=== PATIENT | female | born 1990 | race Caucasian/White ===

== ENCOUNTER 2020-11-13 09:29 | Outpatient (REF) | payer MEDICAID, SELFPAY | END 2020-11-13 09:30 | disposition home or self-care (01) | LOC: HO.LAB 09:29 | PROVIDERS: Visit Provider Internal Medicine | DX: Z20.822 Contact with and (suspected) exposure to COVID-19 (principal) | CPT/HCPCS: C9803; U0003; U0005 ==

== ENCOUNTER 2022-04-19 22:29 | Emergency (ER) | payer MEDICAID, SELFPAY ==
[2022-04-19 22:52] VITALS: BP 159/108; PULSE 71; RESP 20; TEMP 36.6; O2SAT 100; BMI 31.8
--- NOTE | 2022-04-19 23:01 | PC.NURSE ---
patient had conversation with this RN about how she actually does not want to wait to be seen since the waiting room is full and she knows it will be a long wait. patient tells this RN she has a prescription for blood pressure medications waiting for her at her pharmacy however she has not had any time to pick them up since 04/08. 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 leaving without treatment @2300, staff research associate used.
--- OUTSIDE RECORDS SUMMARY | 2022-04-19 23:37 | XMS_ITS | Continuity of Care Document ---
:1990 Author Organization [facility] Address [address] [place] [id number]- Care Team Providers Name Role Phone Deborah Davis MD Primary Care Physician [phone] Encounter [facility] Date(s): 02/24/20 - 03/25/20 [facility] [address] [place] [id number] Attending Physician: Kimber Hirsch Admitting Physician: Kimber Hirsch Referring Physician: Kimber Hirsch Referring Physician: Khanh Hannah Allergies, Adverse Reactions, Alerts Substance Reaction Severity Status Advil throat closing Active Immunizations Given and Recorded Vaccine Date Status Refusal Reason influenza virus vaccine, inactivated1 05/21/14 Given 1Early/Late Reason: Other : Vaccine information fact sheet given, time to read about the Vaccine Medications Liletta 52 mg intrauteral device 1 each = 52 mg, Once, 0 Refills, Maintenance, 12/05/17 12:06:46 EDT Start Date: 12/05/17 Status: Orderedpropranolol 20 mg oral tablet 20 mg, 1, tablet, By Mouth, 2 times a day, PRN, for palpitations, Solo cuando necessitas, # 60 tablet, Refills 3, Tot. Refills 3, Maintenance, Chest Pain, 02/13/18 11:30:40 EST, Route to Pharmacy Electronically, [id number] CE[facility].. Start Date: 02/13/18 Status: OrderedTylenol 325 mg oral tablet 325 mg, 1, tablet, By Mouth, Every 4 hours, PRN, # 60 tablet, Refills 0, Tot. Refills 0, Maintenance, for pain, 05/20/16 11:01:07, Route to Pharmacy Electronically, [id number], [facility]/pharmacy #[id number] Start Date: 05/20/16 Status: Ordered Problem List Condition Effective Dates Status Health Status Informant Anxiety(Confirmed) Active Depression(Confirmed) Active Palpitations(Confirmed) Active Social History Social History Type Response Smoking Status Never smoker entered on: 05/20/14 Sex
--- OUTSIDE RECORDS SUMMARY | 2022-04-19 23:37 | XMS_ITS | Continuity of Care Document ---
:1990 Author Organization [facility] Address [address] [place] [id number]- Care Team Providers Name Role Phone Deborah Davis MD Primary Care Physician [phone] Encounter [facility] [place] Date(s): 12/09/19 - 03/25/20 [facility] [address] [place] [id number]- Attending Physician: Dale Amanda MD Admitting Physician: Dale Amanda MD Referring Physician: Deborah Davis MD Allergies, Adverse Reactions, Alerts Substance Reaction Severity [...] 02/13/18 11:30:40 EST, Route to Pharmacy Electronically, [id number], C... Start Date: 02/13/18 Status: OrderedTylenol 325 mg oral tablet 325 mg, 1, tablet, By Mouth, Every 4 hours, PRN, # 60 tablet, Refills 0, Tot. Refills 0, Maintenance, for pain, 05/20/16 11:01:07, Route to Pharmacy Electronically, [id number], [facility]/pharmacy #[id number] Start Date: 05/20/16 Status: Ordered Problem List Condition Effective Dates Status Health Status Informant Anxiety(Confirmed) Active Depression(Confirmed) Active Palpitations(Confirmed) Active Social History Social History Type Response Smoking Status Never smoker entered on: 05/20/14 Sex
--- OUTSIDE RECORDS SUMMARY | 2022-04-19 23:37 | XMS_ITS | Continuity of Care Document ---
:1990 Author Organization [facility] Address [address] [place] [id number]- Care Team Providers Name Role Phone Deborah Davis MD Primary Care Physician Encounter [facility] Date(s): 12/09/19 - 01/08/20 [facility] [address] [place] [id number]- [facility] Allergies, Adverse Reactions, Alerts Substance Reaction Severity [...] 02/13/18 11:30:40 EST, Route to Pharmacy Electronically, [id number], C... Start Date: 02/13/18 Status: OrderedTylenol 325 mg oral tablet 325 mg, 1, tablet, By Mouth, Every 4 hours, PRN, # 60 tablet, Refills 0, Tot. Refills 0, Maintenance, for pain, 05/20/16 11:01:07, Route to Pharmacy Electronically, [id number], [facility]/pharmacy #[id number] Start Date: 05/20/16 Status: Ordered Problem List Condition Effective Dates Status Health Status Informant Anxiety(Confirmed) Active Depression(Confirmed) Active Palpitations(Confirmed) Active Social History Social History Type Response Smoking Status Never smoker entered on: 05/20/14 Sex
--- OUTSIDE RECORDS SUMMARY | 2022-04-19 23:37 | XMS_ITS | Continuity of Care Document ---
:1990 Author Organization [facility] Address [address] [place] [id number]- Care Team Providers Name Role Phone Deborah Daivs MD Primary Care Physician En[place] [facility] [id number] Date(s): 12/28/19 - 03/25/20 [facility] [address] [place] [id number] Attending Physician: Dale Amanda MD Admitting Physician: [...] 02/13/18 11:30:40 EST, Route to Pharmacy Electronically, [id number], C... Start Date: 02/13/18 Status: OrderedTylenol 325 mg oral tablet 325 mg, 1, tablet, By Mouth, Every 4 hours, PRN, # 60 tablet, Refills 0, Tot. Refills 0, Maintenance, for pain, 05/20/16 11:01:07, Route to Pharmacy Electronically, [id number], [facility]/pharmacy #[id number] Start Date: 05/20/16 Status: Ordered Problem List Condition Effective Dates Status Health Status Informant Anxiety(Confirmed) Active Depression(Confirmed) Active Palpitations(Confirmed) Active Social History Social History Type Response Smoking Status Never smoker entered on: 05/20/14 Sex
== END 2022-04-19 23:43 | disposition left against medical advice (07) ==
LOC: HO.ED 23:36
PROVIDERS: Emergency Provider Emergency Medicine
DX: I10 Essential (primary) hypertension (principal)
CPT/HCPCS: 99281

== ENCOUNTER 2022-04-20 11:48 | Emergency (ER) | payer MEDICAID, SELFPAY ==
--- NOTE | ~2022-04-20 | XR_ITS ---
EXAMINATION: XR CHEST CLINICAL INFORMATION: Chest pain and shortness of breath COMPARISON: None TECHNIQUE: 2 views of the chest were obtained. FINDINGS: No significant abnormality is noted involving the heart, lungs, mediastinum, bony thorax or soft tissues. XR/XR chest 2V IMPRESSION: Unremarkable examination.
--- NOTE | 2022-04-20 11:52 | ECG_ITS ---
Test Reason : chest pain Blood Pressure : / mmHG Vent. Rate : 067 BPM Atrial Rate : 067 BPM P-R Int : 136 ms QRS Dur : 136 ms QT Int : 392 ms P-R-T Axes : 019 011 -17 degrees QTc Int : 414 ms Normal sinus rhythm Right bundle branch block T wave abnormality, consider inferior ischemia Abnormal ECG When compared with ECG of 06-FEB-2010 02:30, [place] interval has increased Questionable change in QRS axis T wave inversion more evident in Inferior leads Nonspecific T wave abnormality now evident in Lateral leads Referred By: Generic ED Physician Electronically Signed By:Jaxon Coello
--- NOTE | 2022-04-20 12:00 | ED_ITS ---
HPI - Arrhythmia/Palpitations General Chief Complaint: General Medical <Jazzy Sabillon CNP - Last Filed: 04/20/22 12:19> Stated Complaint: rapid heart beat <Jazzy Sabillon CNP - Last Filed: 04/20/22 12:19> Time Seen by Provider: 04/20/22 16:22 <Jazzy Sabillon CNP - Last Filed: 04/20/22 12:19> Source: patient and court interpreter <Reilly Cruz MD - Last Filed: 04/20/22 17:34> Mode of arrival: ambulatory <Reilly Cruz MD - Last Filed: 04/20/22 17:34> Limitations: no limitations <Reilly Cruz MD - Last Filed: 04/20/22 17:34> History of Present Illness HPI narrative: 31-year-old female came in for evaluation of palpitation. Patient was sent from PCP office for evaluation of palpitation and abnormal EKG, patient been having intermittent feeling of palpitation on and off last time she felt palpitation was 3 days ago, nothing triggered her symptoms, patient declined CP or SOB, no recent travel, no lower extremity swelling, no history of DVT or PE. <Reilly Cruz MD - Last Filed: 04/20/22 17:34> Related Data Home Medications: Previous Rx's Medication Instructions Recorded nitrofurantoin 100 mg PO BID #14 caps 04/20/22 monohydrate/macrocrystals 100 mg capsule (Macrobid) <Jazzy Sabillon CNP - Last Filed: 04/20/22 12:19> Allergies/Adverse Reactions: Allergies Allergy/AdvReac Type Severity Reaction Status Date / Time ibuprofen [Advil] Allergy Unknown Unknown Verified 04/20/22 12:02 <Jazzy Sabillon CNP - Last Filed: 04/20/22 12:19> Review of Systems Review of Systems: All other systems are reviewed and are negative Constitutional: Reports as per HPI and Reports no additional constitutional complaints Eyes: Reports as per HPI and Reports no additional eye complaints Reports system reviewed and no additional complaints, except as documented Cardiovascular: Reports as per HPI and Reports no additional cardiovascular complaints Respiratory: Reports as per HPI and Reports no additional respiratory complaints Gastrointestinal: Reports as per HPI and Reports no additional gastrointestinal complaints Genitourinary: Reports no additional female genitourinary complaints Musculoskeletal: Reports no additional musculoskeletal complaints Skin/Breast: Reports system reviewed and no additional complaints, except as docu Psychiatric: Reports no additional psychiatric complaints Endocrine: Reports no additional endocrine complaints Hematologic/Lymphatic: Reports no additional hematologic/lymphatic complaints Allergic/Immunologic: Reports no additional allergic/immunologic complaints Reports system reviewed and no additional complaints, except as documented and Reports Abnormal speech present <Reilly Cruz MD - Last Filed: 04/20/22 17:34> [facility] Social History Social History: Social History Advance Directives: No Advance Directives Information Provided: No <Jazzy Sabillon CNP - Last Filed: 04/20/22 12:19> Physical Exam Vital Signs: Vital Signs: Last Vital Signs Temp 97.9 F 04/20/22 16:40 Pulse 64 04/20/22 16:40 Resp 20 04/20/22 16:40 BP 140/91 H 04/20/22 16:40 Pulse Ox 99 04/20/22 16:40 O2 Del Method 04/20/22 16:40 BMI result Body Mass Index 32.9 <Jazzy Sabillon CNP - Last Filed: 04/20/22 12:19> Vital Signs: Last Vital Signs Temp 97.9 F 04/20/22 16:40 Pulse 64 04/20/22 16:40 Resp 20 04/20/22 16:40 BP 140/91 H 04/20/22 16:40 Pulse Ox 99 04/20/22 16:40 O2 Del Method 04/20/22 16:40 BMI result Body Mass Index 32.9 Vital signs have been reviewed as appeared to be correct. Blood pressure normal. Heart rate normal. Respiration rate normal. Temperature normal. Oxygen saturation normal. <Reilly Cruz MD - Last Filed: 04/20/22 17:34> Appearance: Alert. Oriented X3. No acute distress. Head: Normal external exam. Normocephalic. Atraumatic. No Alex signs noted. No raccoon eyes noted Eyes: PERRLA. EOMI. Conjunctiva and sclera normal. Eyelids normal. ENT: TM's Normal. Pharynx normal. Uvula midline. Moist mucous membranes. No trismus noted. No drooling noted. No muffled voice noted. Neck: Normal inspection. Neck supple. FROM. No adenopathy. Thyroid Normal. No meningeal signs. No neck mass noted. CVS: Normal heart rate and rhythm. Heart sound normal. No murmurs noted. Pulses normal throughout. Respiratory: No respiratory distress. Painless inspiration. Breath sounds normal. No wheezes/rales/rhonchi noted. Chest nontender. No accessory muscle usage noted or decreased air movement noted. Abdomen: Soft and nontender. Bowel sounds normal in all 4 quadrants. No distention noted. No organomegaly noted. No visible injury noted. Back: No CVA tenderness. Full range of motion noted. Skin: Skin warm and dry. Normal skin color. Normal skin turgor. No rashes/lesions/lacerations noted. Extremities: No lower extremity edema. Extremities exhibit normal range of motion. Extremities nontender. Neuro: Oriented X 3. Cranial nerve exam: II-XII are grossly intact No motor deficit. No sensory deficit. Reflexes normal. <Reilly Cruz MD - Last Filed: 04/20/22 17:34> Course Course Course Narrative: This is an RME: Additional HPI, ROS, PE not included below will be deferred to primary provider. 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 Patient presents emergency depa rtment. States that she was seen here yesterday for chest pain, palpitations, shortness of breath intermittently over the past 2 weeks, constant over the last 3 days. Additionally, she states ?my blood pressure is always high?. The been on medication in the possible hypertension, but no longer taking over the past year, because she did not have a follow-up appointment with Cardiology. She states that she does have a PCP, saw her on 04/08/22, they were supposed to prescribe her medication, but when she went to the pharmacy there were no medications for her. She states that she again saw her PCP today, and was advised to come to emergency department because of concern for her blood pressure and heart rate. Plan: EKG, CXR, labs, U/A, hCG <Jazzy Sabillon CNP - Last Filed: 04/20/22 12:19> Reevaluation(s) Reevaluation #1: 31-year-old female came in for evaluation of palpitation, PCP sent the patient for further evaluation and concern of abnormal EKG. Patient found to be a young healthy female slightly anxious interview was conducted using diplomatic interpreter/translator, patient has unremarkable labs, EKG was compared with old EKG was unremarkable ED changed. Patient currently has no symptoms, patient was instructed to follow-up with vmware engineer as an outpatient for possible Holter monitoring if symptoms persist. Urine is showing a UTI patient was complaining of frequency urination and dysuria will start the patient on Macrobid. <Reilly Cruz MD - Last Filed: 04/20/22 17:34> Time: 16:43 <Reilly Cruz MD - Last Filed: 04/20/22 17:34> Medical Decision Making Differential Diagnosis Differential Diagnoses: The differential diagnosis associated with the presentation includes <Reilly Cruz MD - Last Filed: 04/20/22 17:34> Dysrhythmia, atrial fibrillation, PVCs, electrolyte disturbance, hyperthyroidism, ACS. <Reilly Cruz MD - Last Filed: 04/20/22 17:34> Lab Data MDM Lab Attestation statement: I reviewed the patient's lab results. <Reilly Cruz MD - Last Filed: 04/20/22 17:34> Result Diagrams: 04/20/22 12:26 04/20/22 12:26 <Jazzy Sabillon CNP - Last Filed: 04/20/22 12:19> Labs: Lab Results 04/20/22 04/20/22 04/20/22 Range/Units 12:26 12:26 12:26 WBC 9.8 (4.8-10.8) X10*3/uL RBC 5.35 (4.20-5.50) X10*6/uL Hgb 14.1 (12.0-16.0) g/dl Hct 44.2 (37.0-47.0) % MCV 82.6 (80.0-98.0) fL MCH 26.4 L (27.0-33.0) pg MCHC 31.9 (31.0-35.0) g/dl RDW 12.9 (11.0-16.0) % Plt Count 427 H (160-400) X10*3/uL MPV 9.4 (9.4-12.3) fL Immature Gran % (Auto) 0.3 (0.0-0.4) % Neut % (Auto) 55.2 (45-73) % Lymph % (Auto) 34.0 (20-40) % [place] % (Auto) 8.2 (2-11) % Eos % (Auto) 1.7 (0-4) % Baso % (Auto) 0.6 (0-2) % Lymph # (Auto) 3.4 (1.2-4.9) X10*3/uL [place] # (Auto) 0.8 (0.1-1.2) X10*3/uL Eos # (Auto) 0.2 (0.0-0.4) X10*3/uL Baso # (Auto) 0.1 (0.0-0.2) X10*3/uL Abs Immat Gran (auto) 0.03 (0.00-0.03) X10*3/uL Absolute Neuts (auto) 5.4 (2.0-8.3) x10*3/uL Absolute Nucleated RBC 0.000 (0.0-0.012) X10*3/uL Nucleated RBC % (auto) 0.0 (0.0-0.2) /100WBC Sodium 142 (135-145) mmol/L Potassium 4.6 (3.3-5.1) mmol/L Chloride 107 (96-108) mmol/L Carbon Dioxide 27 (22-29) mmol/L Anion Gap 13 (12-20) BUN 9 (9-16) mg/dL Creatinine 0.67 (0.5-1.4) mg/dL Estim Creat Clear Calc 121.6 Estimated GFR > 60 Random Glucose 98 (60-115) mg/dL Calcium 9.6 (8.4-10.2) mg/dL Total Bilirubin 0.3 (0.0-1.0) mg/dL AST 15 (5-31) U/L ALT 27 (0-31) U/L Alkaline Phosphatase 71 (39-117) U/L Troponin I High Sens 7.1 (<3.5-17.0) ng/L Total Protein 7.3 (6.5-8.0) g/dL Albumin 4.2 (3.5-5.0) g/dL TSH 0.98 (0.32-4.0) uIU/mL Urine Color Urine Appearance Urine pH (5.0-9.0) Ur Specific [place] (1.005-1.025) Urine Protein (Neg-Trace) mg/dL Urine Glucose (UA) (Negative) mg/dL Urine Ketones (Negative) mg/dL Urine Blood (Negative) Urine Nitrite (Negative) Ur Leukocyte Esterase (Negative) Urine RBC (0-2) /HPF Urine WBC (0-5) /HPF Ur Squamous Epith Cells (0-2) /HPF Urine Bacteria (None Seen) Hyaline Casts (0-2) /LPF Urine Test (NEGATIVE) COVID-19 (SHASHI) (Negative) COVID-19 Clin Com Influenza Type A (BARBARA) (Negative) Influenza Type B (BARBARA) (Negative) Influenza A & B Note 04/20/22 04/20/22 04/20/22 Range/Units 12:26 12:26 17:00 WBC (4.8-10.8) X10*3/uL RBC (4.20-5.50) X10*6/uL Hgb (12.0-16.0) g/dl Hct (37.0-47.0) % MCV (80.0-98.0) fL MCH (27.0-33.0) pg MCHC (31.0-35.0) g/dl RDW (11.0-16.0) % Plt Count (160-400) X10*3/uL MPV (9.4-12.3) fL Immature Gran % (Auto) (0.0-0.4) % Neut % (Auto) (45-73) % Lymph % (Auto) (20-40) % [place] % (Auto) (2-11) % Eos % (Auto) (0-4) % Baso % (Auto) (0-2) % Lymph # (Auto) (1.2-4.9) X10*3/uL [place] # (Auto) (0.1-1.2) X10*3/uL Eos # (Auto) (0.0-0.4) X10*3/uL Baso # (Auto) (0.0-0.2) X10*3/uL Abs Immat Gran (auto) (0.00-0.03) X10*3/uL Absolute Neuts (auto) (2.0-8.3) x10*3/uL Absolute Nucleated RBC (0.0-0.012) X10*3/uL Nucleated RBC % (auto) (0.0-0.2) /100WBC Sodium (135-145) mmol/L Potassium (3.3-5.1) mmol/L Chloride (96-108) mmol/L Carbon Dioxide (22-29) mmol/L Anion Gap (12-20) BUN (9-16) mg/dL Creatinine (0.5-1.4) mg/dL Estim Creat Clear Calc Estimated GFR Random Glucose (60-115) mg/dL Calcium (8.4-10.2) mg/dL Total Bilirubin (0.0-1.0) mg/dL AST (5-31) U/L ALT (0-31) U/L Alkaline Phosphatase (39-117) U/L Troponin I High Sens (<3.5-17.0) ng/L Total Protein (6.5-8.0) g/dL Albumin (3.5-5.0) g/dL TSH (0.32-4.0) uIU/mL Urine Color Yellow Urine Appearance Cloudy Urine pH 6.5 (5.0-9.0) Ur Specific [place] 1.025 (1.005-1.025) Urine Protein Trace (Neg-Trace) mg/dL Urine Glucose (UA) Negative (Negative) mg/dL Urine Ketones Negative (Negative) mg/dL Urine Blood Trace H (Negative) Urine Nitrite Negative (Negative) Ur Leukocyte Esterase Moderate (2+) H (Negative) Urine RBC 6-10 H (0-2) /HPF Urine WBC 21-50 H (0-5) /HPF Ur Squamous Epith Cells 11-20 (0-2) /HPF Urine Bacteria 2+ (None Seen) Hyaline Casts 0-2 (0-2) /LPF Urine Test (NEGATIVE) COVID-19 (SHASHI) Negative (Negative) COVID-19 Clin Com See Note Influenza Type A (BARBARA) Negative (Negative) Influenza Type B (BARBARA) Negative (Negative) Influenza A & B Note See Note 02/15/23 Range/Units 17:00 WBC (4.8-10.8) X10*3/uL RBC (4.20-5.50) X10*6/uL Hgb (12.0-16.0) g/dl Hct (37.0-47.0) % MCV (80.0-98.0) fL MCH (27.0-33.0) pg MCHC (31.0-35.0) g/dl RDW (11.0-16.0) % Plt Count (160-400) X10*3/uL MPV (9.4-12.3) fL Immature Gran % (Auto) (0.0-0.4) % Neut % (Auto) (45-73) % Lymph % (Auto) (20-40) % [place] % (Auto) (2-11) % Eos % (Auto) (0-4) % Baso % (Auto) (0-2) % Lymph # (Auto) (1.2-4.9) X10*3/uL [place] # (Auto) (0.1-1.2) X10*3/uL Eos # (Auto) (0.0-0.4) X10*3/uL Baso # (Auto) (0.0-0.2) X10*3/uL Abs Immat Gran (auto) (0.00-0.03) X10*3/uL Absolute Neuts (auto) (2.0-8.3) x10*3/uL Absolute Nucleated RBC (0.0-0.012) X10*3/uL Nucleated RBC % (auto) (0.0-0.2) /100WBC Sodium (135-145) mmol/L Potassium (3.3-5.1) mmol/L Chloride (96-108) mmol/L Carbon Dioxide (22-29) mmol/L Anion Gap (12-20) BUN (9-16) mg/dL Creatinine (0.5-1.4) mg/dL Estim Creat Clear Calc Estimated GFR Random Glucose (60-115) mg/dL Calcium (8.4-10.2) mg/dL Total Bilirubin (0.0-1.0) mg/dL AST (5-31) U/L ALT (0-31) U/L Alkaline Phosphatase (39-117) U/L Troponin I High Sens (<3.5-17.0) ng/L Total Protein (6.5-8.0) g/dL Albumin (3.5-5.0) g/dL TSH (0.32-4.0) uIU/mL Urine Color Urine Appearance Urine pH (5.0-9.0) Ur Specific [place] (1.005-1.025) Urine Protein (Neg-Trace) mg/dL Urine Glucose (UA) (Negative) mg/dL Urine Ketones (Negative) mg/dL Urine Blood (Negative) Urine Nitrite (Negative) Ur Leukocyte Esterase (Negative) Urine RBC (0-2) /HPF Urine WBC (0-5) /HPF Ur Squamous Epith Cells (0-2) /HPF Urine Bacteria (None Seen) Hyaline Casts (0-2) /LPF Urine Test NEGATIVE (NEGATIVE) COVID-19 (SHASHI) (Negative) COVID-19 Clin Com Influenza Type A (BARBARA) (Negative) Influenza Type B (BARBARA) (Negative) Influenza A & B Note <Jazzy Sabillon, AUDREY - Last Filed: 04/20/22 12:19> Lab Results 04/20/22 04/20/22 04/20/22 Range/Units 12:26 12:26 12:26 WBC 9.8 (4.8-10.8) X10*3/uL RBC 5.35 (4.20-5.50) X10*6/uL Hgb 14.1 (12.0-16.0) g/dl Hct 44.2 (37.0-47.0) % MCV 82.6 (80.0-98.0) fL MCH 26.4 L (27.0-33.0) pg MCHC 31.9 (31.0-35.0) g/dl RDW 12.9 (11.0-16.0) % Plt Count 427 H (160-400) X10*3/uL MPV 9.4 (9.4-12.3) fL Immature Gran % (Auto) 0.3 (0.0-0.4) % Neut % (Auto) 55.2 (45-73) % Lymph % (Auto) 34.0 (20-40) % [place] % (Auto) 8.2 (2-11) % Eos % (Auto) 1.7 (0-4) % Baso % (Auto) 0.6 (0-2) % Lymph # (Auto) 3.4 (1.2-4.9) X10*3/uL [place] # (Auto) 0.8 (0.1-1.2) X10*3/uL Eos # (Auto) 0.2 (0.0-0.4) X10*3/uL Baso # (Auto) 0.1 (0.0-0.2) X10*3/uL Abs Immat Gran (auto) 0.03 (0.00-0.03) X10*3/uL Absolute Neuts (auto) 5.4 (2.0-8.3) x10*3/uL Absolute Nucleated RBC 0.000 (0.0-0.012) X10*3/uL Nucleated RBC % (auto) 0.0 (0.0-0.2) /100WBC Sodium 142 (135-145) mmol/L Potassium 4.6 (3.3-5.1) mmol/L Chloride 107 (96-108) mmol/L Carbon Dioxide 27 (22-29) mmol/L Anion Gap 13 (12-20) BUN 9 (9-16) mg/dL Creatinine 0.67 (0.5-1.4) mg/dL Estim Creat Clear Calc 121.6 Estimated GFR > 60 Random Glucose 98 (60-115) mg/dL Calcium 9.6 (8.4-10.2) mg/dL Total Bilirubin 0.3 (0.0-1.0) mg/dL AST 15 (5-31) U/L ALT 27 (0-31) U/L Alkaline Phosphatase 71 (39-117) U/L Troponin I High Sens 7.1 (<3.5-17.0) ng/L Total Protein 7.3 (6.5-8.0) g/dL Albumin 4.2 (3.5-5.0) g/dL TSH 0.98 (0.32-4.0) uIU/mL Urine Color Urine Appearance Urine pH (5.0-9.0) Ur Specific [place] (1.005-1.025) Urine Protein (Neg-Trace) mg/dL Urine Glucose (UA) (Negative) mg/dL Urine Ketones (Negative) mg/dL Urine Blood (Negative) Urine Nitrite (Negative) Ur Leukocyte Esterase (Negative) Urine RBC (0-2) /HPF Urine WBC (0-5) /HPF Ur Squamous Epith Cells (0-2) /HPF Urine Bacteria (None Seen) Hyaline Casts (0-2) /LPF Urine Test (NEGATIVE) COVID-19 (SHASHI) (Negative) COVID-19 Clin Com Influenza Type A (BARBARA) (Negative) Influenza Type B (BARBARA) (Negative) Influenza A & B Note 04/20/22 04/20/22 04/20/22 Range/Units 12:26 12:26 17:00 WBC (4.8-10.8) X10*3/uL RBC (4.20-5.50) X10*6/uL Hgb (12.0-16.0) g/dl Hct (37.0-47.0) % MCV (80.0-98.0) fL MCH (27.0-33.0) pg MCHC (31.0-35.0) g/dl RDW (11.0-16.0) % Plt Count (160-400) X10*3/uL MPV (9.4-12.3) fL Immature Gran % (Auto) (0.0-0.4) % Neut % (Auto) (45-73) % Lymph % (Auto) (20-40) % [place] % (Auto) (2-11) % Eos % (Auto) (0-4) % Baso % (Auto) (0-2) % Lymph # (Auto) (1.2-4.9) X10*3/uL [place] # (Auto) (0.1-1.2) X10*3/uL Eos # (Auto) (0.0-0.4) X10*3/uL Baso # (Auto) (0.0-0.2) X10*3/uL Abs Immat Gran (auto) (0.00-0.03) X10*3/uL Absolute Neuts (auto) (2.0-8.3) x10*3/uL Absolute Nucleated RBC (0.0-0.012) X10*3/uL Nucleated RBC % (auto) (0.0-0.2) /100WBC Sodium (135-145) mmol/L Potassium (3.3-5.1) mmol/L Chloride (96-108) mmol/L Carbon Dioxide (22-29) mmol/L Anion Gap (12-20) BUN (9-16) mg/dL Creatinine (0.5-1.4) mg/dL Estim Creat Clear Calc Estimated GFR Random Glucose (60-115) mg/dL Calcium (8.4-10.2) mg/dL Total Bilirubin (0.0-1.0) mg/dL AST (5-31) U/L ALT (0-31) U/L Alkaline Phosphatase (39-117) U/L Troponin I High Sens (<3.5-17.0) ng/L Total Protein (6.5-8.0) g/dL Albumin (3.5-5.0) g/dL TSH (0.32-4.0) uIU/mL Urine Color Yellow Urine Appearance Cloudy Urine pH 6.5 (5.0-9.0) Ur Specific [place] 1.025 (1.005-1.025) Urine Protein Trace (Neg-Trace) mg/dL Urine Glucose (UA) Negative (Negative) mg/dL Urine Ketones Negative (Negative) mg/dL Urine Blood Trace H (Negative) Urine Nitrite Negative (Negative) Ur Leukocyte Esterase Moderate (2+) H (Negative) Urine RBC 6-10 H (0-2) /HPF Urine WBC 21-50 H (0-5) /HPF Ur Squamous Epith Cells 11-20 (0-2) /HPF Urine Bacteria 2+ (None Seen) Hyaline Casts 0-2 (0-2) /LPF Urine Test (NEGATIVE) COVID-19 (SHASHI) Negative (Negative) COVID-19 Clin Com See Note Influenza Type A (BARBARA) Negative (Negative) Influenza Type B (BARBARA) Negative (Negative) Influenza A & B Note See Note 04/20/22 Range/Units 17:00 WBC (4.8-10.8) X10*3/uL RBC (4.20-5.50) X10*6/uL Hgb (12.0-16.0) g/dl Hct (37.0-47.0) % MCV (80.0-98.0) fL MCH (27.0-33.0) pg MCHC (31.0-35.0) g/dl RDW (11.0-16.0) % Plt Count (160-400) X10*3/uL MPV (9.4-12.3) fL Immature Gran % (Auto) (0.0-0.4) % Neut % (Auto) (45-73) % Lymph % (Auto) (20-40) % [place] % (Auto) (2-11) % Eos % (Auto) (0-4) % Baso % (Auto) (0-2) % Lymph # (Auto) (1.2-4.9) X10*3/uL [place] # (Auto) (0.1-1.2) X10*3/uL Eos # (Auto) (0.0-0.4) X10*3/uL Baso # (Auto) (0.0-0.2) X10*3/uL Abs Immat Gran (auto) (0.00-0.03) X10*3/uL Absolute Neuts (auto) (2.0-8.3) x10*3/uL Absolute Nucleated RBC (0.0-0.012) X10*3/uL Nucleated RBC % (auto) (0.0-0.2) /100WBC Sodium (135-145) mmol/L Potassium (3.3-5.1) mmol/L Chloride (96-108) mmol/L Carbon Dioxide (22-29) mmol/L Anion Gap (12-20) BUN (9-16) mg/dL Creatinine (0.5-1.4) mg/dL Estim Creat Clear Calc Estimated GFR Random Glucose (60-115) mg/dL Calcium (8.4-10.2) mg/dL Total Bilirubin (0.0-1.0) mg/dL AST (5-31) U/L ALT (0-31) U/L Alkaline Phosphatase (39-117) U/L Troponin I High Sens (<3.5-17.0) ng/L Total Protein (6.5-8.0) g/dL Albumin (3.5-5.0) g/dL TSH (0.32-4.0) uIU/mL Urine Color Urine Appearance Urine pH (5.0-9.0) Ur Specific [place] (1.005-1.025) Urine Protein (Neg-Trace) mg/dL Urine Glucose (UA) (Negative) mg/dL Urine Ketones (Negative) mg/dL Urine Blood (Negative) Urine Nitrite (Negative) Ur Leukocyte Esterase (Negative) Urine RBC (0-2) /HPF Urine WBC (0-5) /HPF Ur Squamous Epith Cells (0-2) /HPF Urine Bacteria (None Seen) Hyaline Casts (0-2) /LPF Urine Test NEGATIVE (NEGATIVE) COVID-19 (SHASHI) (Negative) COVID-19 Clin Com Influenza Type A (BARBARA) (Negative) Influenza Type B (BARBARA) (Negative) Influenza A & B Note <Reilly Cruz MD - Last Filed: 04/20/22 17:34> Independent Interpretation I performed an independent interpretation of an: EKG (Normal sinus rhythm at 67 beats per minutes, right bundle branch block, T-wave inversion likely secondary to the RBBB, unchanged from EKG from 2009) and Plain X-Ray <Reilly Cruz MD - Last Filed: 04/20/22 17:34> Interpretation: Unremarkable examination. <Reilly Cruz MD - Last Filed: 04/20/22 17:34> Discharge Plan Discharge Clinical Impression: Heart palpitations, Urinary tract infection <Jazzy Sabillon CNP - Last Filed: 04/20/22 12:19> Patient Disposition: Home, Self-Care <Jazzy Sabillon CNP - Last Filed: 04/20/22 12:19> Instructions: Heart Palpitations (ED), Urinary Tract Infection in Women (ED) <Jazzy Sabillon CNP - Last Filed: 04/20/22 12:19> Prescriptions: New nitrofurantoin monohyd/m-cryst [Macrobid] 100 mg capsule 100 mg PO BID Qty: 14 0RF Rx Instructions: must administer with a meal/food <Jazzy Sabillon CNP - Last Filed: 04/20/22 12:19> Referrals: Wilfredo Penaloza MD [Physician] - <Jazzy Sabillon CNP - Last Filed: 04/20/22 12:19>
[2022-04-20 12:06] VITALS: BP 147/89; PULSE 70; RESP 19; TEMP 36.6; O2SAT 100; BMI 32.9
[2022-04-20 12:32] LABS: MANUAL DIFF FLAG NO
[2022-04-20 12:34] LABS: Basophils Absolute Auto 0.1 X10*3/uL (0.0-0.2); Basophils Percent Auto 0.6 % (0-2); Eosinophils Absolute Auto 0.2 X10*3/uL (0.0-0.4); Eosinophils Percent Auto 1.7 % (0-4); Hematocrit 44.2 % (37.0-47.0); Hemoglobin 14.1 g/dl (12.0-16.0); Imm Gran Abs Auto 0.03 X10*3/uL (0.00-0.03); Imm Gran Pct Auto 0.3 % (0.0-0.4); Lymphocytes Absolute Auto 3.4 X10*3/uL (1.2-4.9); Mean Corpuscular HGB Conc 31.9 g/dl (31.0-35.0); Mean Corpuscular Hemoglobin 26.4 pg (27.0-33.0); Mean Corpuscular Volume 82.6 fL (80.0-98.0); Mean Platelet Volume 9.4 fL (9.4-12.3); Monocytes Absolute Auto 0.8 X10*3/uL (0.1-1.2); Monocytes Percent Auto 8.2 % (2-11); Neutrophils Absolute Auto 5.4 x10*3/uL (2.0-8.3); Neutrophils Percent Auto 55.2 % (45-73); Platelet Count 427 X10*3/uL (160-400); Red Blood Count 5.35 X10*6/uL (4.20-5.50); Red Cell Distribution Width 12.9 % (11.0-16.0); White Blood Count 9.8 X10*3/uL (4.8-10.8)
[2022-04-20 12:52] LABS: IDNOW Serial# 9DB6401D; Influenza A Negative (Negative); Influenza B2 Negative (Negative)
[2022-04-20 12:55] LABS: Alanine Aminotransferase 27 U/L (0-31); Albumin Level 4.2 g/dL (3.5-5.0); Alkaline Phosphatase 71 U/L (39-117); Anion Gap 13 (12-20); Aspartate Amino Transferase 15 U/L (5-31); Bilirubin Total 0.3 mg/dL (0.0-1.0); Blood Urea Nitrogen 9 mg/dL (9-16); Calcium 9.6 mg/dL (8.4-10.2); Carbon Dioxide 27 mmol/L (22-29); Chloride 107 mmol/L (96-108); Creatinine Clr Calc Pharmacy 121.6; Estimated Glomerular Filt Rate > 60; Glucose Random 98 mg/dL (60-115); Potassium 4.6 mmol/L (3.3-5.1); Sodium 142 mmol/L (135-145); Total Protein 7.3 g/dL (6.5-8.0)
[2022-04-20 12:56] LABS: Troponin-I High Sensitivity 7.1 ng/L (<3.5-17.0)
[2022-04-20 13:08] LABS: COVID-19 Test Negative (Negative); IDNOW Serial# 55D5AD1C
[2022-04-20 13:10] LABS: TSH reflex Free T4 0.98 uIU/mL (0.32-4.0)
[2022-04-20 16:40] VITALS: BP 140/91; PULSE 64; RESP 20; TEMP 36.6; O2SAT 99
[2022-04-20 17:15] LABS: Appearance Urine Cloudy; Color Urine Yellow; Glucose Urine UA Negative (Negative); Leukocyte Esterase Urine Moderate (2+) (Negative); Nitrite Urine Negative (Negative); PH 6.5 (5.0-9.0); Specific Gravity - Urine 1.025 (1.005-1.025); UMIC TRIGGER UACC YES; Urine Blood Trace (Negative); Urine Ketones Negative (Negative); Urine Protein Trace mg/dL (Neg-Trace)
[2022-04-20 17:21] LABS: UPreg QC Valid YES; Urine Pregnancy NEGATIVE (NEGATIVE)
[2022-04-20 17:25] LABS: Bacteria Urine 2+ (None Seen); Hyaline Casts Urine 0-2 /LPF (0-2); UACC Culture Trigger YES; WBC Urine 21-50 /HPF (0-5)
== END 2022-04-20 17:40 | disposition home or self-care (01) ==
PROVIDERS: Nurse Practitioner Family; Emergency Provider Emergency Medicine
DX: R00.2 Palpitations (principal); N39.0 Urinary tract infection, site not specified; Z20.822 Contact with and (suspected) exposure to COVID-19
CPT/HCPCS: 71046; 80053; 81001; 81025; 84443; 84484; 85025; 87086; 87147; 87502; 87635; 93005; 99283

== ENCOUNTER 2022-08-08 20:57 | Emergency (ER) | payer MEDICAID, SELFPAY ==
--- NOTE | ~2022-08-08 | XR_ITS ---
EXAMINATION: XR CHEST CLINICAL INFORMATION: Chest pain. COMPARISON: Chest radiographs dated 04/20/2022. TECHNIQUE: Frontal view of the chest was obtained. FINDINGS: No significant abnormality is noted involving the heart, lungs, mediastinum, bony thorax or soft tissues. XR/XR chest 1V IMPRESSION: Unremarkable examination.
[2022-08-08 21:00] VITALS: BP 166/113; PULSE 77; RESP 16; TEMP 36.8; O2SAT 96; BMI 30.9
--- NOTE | 2022-08-08 21:04 | ECG_ITS ---
Test Reason : chest pain Blood Pressure : / mmHG Vent. Rate : 069 BPM Atrial Rate : 069 BPM P-R Int : 116 ms QRS Dur : 144 ms QT Int : 438 ms P-R-T Axes : -10 029 -11 degrees QTc Int : 469 ms Normal sinus rhythm Right bundle branch block Abnormal ECG When compared with ECG of 08-AUG-2022 20:59, No significant change was found Referred By: Juanita Gresham Electronically Signed By:Jaxon Coello
--- NOTE | 2022-08-08 21:08 | ED_ITS ---
HPI - General Adult General Chief complaint: Altered Mental Status Stated complaint: ? heart issue Time Seen by Provider: 08/08/22 21:02 History of Present Illness HPI narrative: Patient is 32-year-old female question history of arrhythmia in the past. Presented today being found unresponsive. Patient had decreased respiratory rate. Pupils were small. Patient was at a . Was found not responsive Related Data Previous Rx's Medication Instructions Recorded nitrofurantoin 100 mg PO BID #14 caps 04/20/22 monohydrate/macrocrystals 100 mg capsule (Macrobid) Allergies Allergy/AdvReac Type Severity Reaction Status Date / Time ibuprofen [Advil] Allergy Unknown Unknown Verified 04/20/22 12:02 Review of Systems Review of Systems: Unable to obtain review of systems [facility] Past Medical History Attestation statement: The following information was validated with the patient. Social History Social History Advance Directives: No Advance Directives Information Provided: Yes Physical Exam ED Vital Signs: Vital Signs - 24 hr 08/08/22 21:00 08/08/22 22:12 Temperature 98.2 F 98.2 F Pulse Rate 77 78 Respiratory Rate 16 12 Blood Pressure 166/113 H 138/92 H Pulse Oximetry 96 99 Oxygen Delivery Method Room Air Room Air BMI result Body Mass Index 30.9 Appearance: Unresponsive with decreased respiratory rate Eyes: Pupils were pinpoint ENT: Pharynx normal. Neck: Normal inspection. Neck supple. No lymph nodes noted. No crepitus CVS: Normal heart rate and rhythm. Pulses normal. Normal S1 and S2 Respiratory: Diminished breath sounds bilaterally Abdomen: Soft and nontender. No rigidity. No distention. good BS x4 Skin: Skin warm and dry. Normal skin color. Normal skin turgor. Extremities: No lower extremity edema. Neurovascular intact to all extremities. No Lacerations. No Rash Neuro: Minimal response to painful stimuli Medical Decision Making Medical Decision Making MDM Narrative: Patient's sugar was checked it was 97. There is no evidence for hypoglycemia. Patient has small pupils. Diminished breath sounds. Given Narcan with good results. Patient woke up. Now answering questions. Denies using recreational drugs. Admits to drinking 1 alcohol beverages that was prepared by herself. Patient claims she has a history of arrhythmias. Is on a medication but is unsure what it is. Has no history of diabetes. No history of hypertension. No history of GA. Patient from home. Two sets of cardiac enzymes are negative. Patient monitor in the emergency department for multiple hours. Repeat EKG was essentially unchanged from the initial 1. Patient well-appearing. Question and patient took a synthetic narcotic as patient's tox screen was negative. Clearly patient was woken up with the Narcan. Stayed awake during monitoring. Offer patient detox but she refused. Will give Narcan to take home. Patient is currently in stable condition. Differential Diagnosis Differential Diagnoses: The differential diagnosis associated with the presentation includes Arrhythmia, narcotic overdose Admission/Observation Consideration of admission/observation: Escalation of care including admission/observation considered Lab Data MDM Lab Attestation statement: I reviewed the patient's lab results. 08/08/22 21:18 08/08/22 21:18 Labs: Lab Results 08/08/22 08/08/22 08/08/22 Range/Units 21:18 21:18 21:18 WBC 10.6 (4.8-10.8) X10*3/uL RBC 5.15 (4.20-5.50) X10*6/uL Hgb 13.6 (12.0-16.0) g/dl Hct 42.2 (37.0-47.0) % MCV 81.9 (80.0-98.0) fL MCH 26.4 L (27.0-33.0) pg MCHC 32.2 (31.0-35.0) g/dl RDW 12.9 (11.0-16.0) % Plt Count 435 H (160-400) X10*3/uL MPV 9.6 (9.4-12.3) fL Immature Gran % (Auto) 0.3 (0.0-0.4) % Neut % (Auto) 52.1 (45-73) % Lymph % (Auto) 34.7 (20-40) % Jasper % (Auto) 10.0 (2-11) % Eos % (Auto) 2.4 (0-4) % Baso % (Auto) 0.5 (0-2) % Lymph # (Auto) 3.7 (1.2-4.9) X10*3/uL Jasper # (Auto) 1.1 (0.1-1.2) X10*3/uL Eos # (Auto) 0.3 (0.0-0.4) X10*3/uL Baso # (Auto) 0.1 (0.0-0.2) X10*3/uL Abs Immat Gran (auto) 0.03 (0.00-0.03) X10*3/uL Absolute Neuts (auto) 5.5 (2.0-8.3) x10*3/uL Absolute Nucleated RBC 0.000 (0.0-0.012) X10*3/uL Nucleated RBC % (auto) 0.0 (0.0-0.2) /100WBC Sodium 144 (135-145) mmol/L Potassium 3.4 D (3.3-5.1) mmol/L Chloride 106 (96-108) mmol/L Carbon Dioxide 28 (22-29) mmol/L Anion Gap 13 (12-20) BUN 9 (9-16) mg/dL Creatinine 0.77 (0.5-1.4) mg/dL Estim Creat Clear Calc 113.5 Estimated GFR > 60 Random Glucose 99 (60-115) mg/dL Calcium 9.7 (8.4-10.2) mg/dL Total Bilirubin 0.6 (0.0-1.0) mg/dL Direct Bilirubin 0.1 (0.0-0.5) mg/dL AST 19 (5-31) U/L ALT 29 (0-31) U/L Alkaline Phosphatase 66 (39-117) U/L Troponin I High Sens 5.4 (<3.5-17.0) ng/L Total Protein 8.0 (6.5-8.0) g/dL Albumin 4.7 (3.5-5.0) g/dL Beta HCG, Quant mIU/mL Urine Opiates Screen (Not Detect) Urine Fentanyl Screen (Not Detect) Ur Barbiturates Screen (Not Detect) Ur Phencyclidine Scrn (Not Detect) Ur Amphetamines Screen (Not Detect) U Benzodiazepines Scrn (Not Detect) Urine Cocaine Screen (Not Detect) U Marijuana (THC) Screen (Not Detect) Ethyl Alcohol mg/dL 08/08/22 08/08/22 08/08/22 Range/Units 21:18 21:18 21:40 WBC (4.8-10.8) X10*3/uL RBC (4.20-5.50) X10*6/uL Hgb (12.0-16.0) g/dl Hct (37.0-47.0) % MCV (80.0-98.0) fL MCH (27.0-33.0) pg MCHC (31.0-35.0) g/dl RDW (11.0-16.0) % Plt Count (160-400) X10*3/uL MPV (9.4-12.3) fL Immature Gran % (Auto) (0.0-0.4) % Neut % (Auto) (45-73) % Lymph % (Auto) (20-40) % Jasper % (Auto) (2-11) % Eos % (Auto) (0-4) % Baso % (Auto) (0-2) % Lymph # (Auto) (1.2-4.9) X10*3/uL Jasper # (Auto) (0.1-1.2) X10*3/uL Eos # (Auto) (0.0-0.4) X10*3/uL Baso # (Auto) (0.0-0.2) X10*3/uL Abs Immat Gran (auto) (0.00-0.03) X10*3/uL Absolute Neuts (auto) (2.0-8.3) x10*3/uL Absolute Nucleated RBC (0.0-0.012) X10*3/uL Nucleated RBC % (auto) (0.0-0.2) /100WBC Sodium (135-145) mmol/L Potassium (3.3-5.1) mmol/L Chloride (96-108) mmol/L Carbon Dioxide (22-29) mmol/L Anion Gap (12-20) BUN (9-16) mg/dL Creatinine (0.5-1.4) mg/dL Estim Creat Clear Calc Estimated GFR Random Glucose (60-115) mg/dL Calcium (8.4-10.2) mg/dL Total Bilirubin (0.0-1.0) mg/dL Direct Bilirubin (0.0-0.5) mg/dL AST (5-31) U/L ALT (0-31) U/L Alkaline Phosphatase (39-117) U/L Troponin I High Sens (<3.5-17.0) ng/L Total Protein (6.5-8.0) g/dL Albumin (3.5-5.0) g/dL Beta HCG, Quant < 2 mIU/mL Urine Opiates Screen Not Detected (Not Detect) Urine Fentanyl Screen Not Detected (Not Detect) Ur Barbiturates Screen Not Detected (Not Detect) Ur Phencyclidine Scrn Not Detected (Not Detect) Ur Amphetamines Screen Not Detected (Not Detect) U Benzodiazepines Scrn Not Detected (Not Detect) Urine Cocaine Screen Not Detected (Not Detect) U Marijuana (THC) Screen Not Detected (Not Detect) Ethyl Alcohol < 10 mg/dL 08/08/22 Range/Units 23:55 WBC (4.8-10.8) X10*3/uL RBC (4.20-5.50) X10*6/uL Hgb (12.0-16.0) g/dl Hct (37.0-47.0) % MCV (80.0-98.0) fL MCH (27.0-33.0) pg MCHC (31.0-35.0) g/dl RDW (11.0-16.0) % Plt Count (160-400) X10*3/uL MPV (9.4-12.3) fL Immature Gran % (Auto) (0.0-0.4) % Neut % (Auto) (45-73) % Lymph % (Auto) (20-40) % Jasper % (Auto) (2-11) % Eos % (Auto) (0-4) % Baso % (Auto) (0-2) % Lymph # (Auto) (1.2-4.9) X10*3/uL Jasper # (Auto) (0.1-1.2) X10*3/uL Eos # (Auto) (0.0-0.4) X10*3/uL Baso # (Auto) (0.0-0.2) X10*3/uL Abs Immat Gran (auto) (0.00-0.03) X10*3/uL Absolute Neuts (auto) (2.0-8.3) x10*3/uL Absolute Nucleated RBC (0.0-0.012) X10*3/uL Nucleated RBC % (auto) (0.0-0.2) /100WBC Sodium (135-145) mmol/L Potassium (3.3-5.1) mmol/L Chloride (96-108) mmol/L Carbon Dioxide (22-29) mmol/L Anion Gap (12-20) BUN (9-16) mg/dL Creatinine (0.5-1.4) mg/dL Estim Creat Clear Calc Estimated GFR Random Glucose (60-115) mg/dL Calcium (8.4-10.2) mg/dL Total Bilirubin (0.0-1.0) mg/dL Direct Bilirubin (0.0-0.5) mg/dL AST (5-31) U/L ALT (0-31) U/L Alkaline Phosphatase (39-117) U/L Troponin I High Sens 6.0 (<3.5-17.0) ng/L Total Protein (6.5-8.0) g/dL Albumin (3.5-5.0) g/dL Beta HCG, Quant mIU/mL Urine Opiates Screen (Not Detect) Urine Fentanyl Screen (Not Detect) Ur Barbiturates Screen (Not Detect) Ur Phencyclidine Scrn (Not Detect) Ur Amphetamines Screen (Not Detect) U Benzodiazepines Scrn (Not Detect) Urine Cocaine Screen (Not Detect) U Marijuana (THC) Screen (Not Detect) Ethyl Alcohol mg/dL Independent Interpretation I performed an independent interpretation of an: EKG Interpretation: My interpretation of patient's EKG showed a sinus rhythm heart rate is 90 there is a right bundle branch block T-wave inversions over the inferior and anterior leads these are old. There is T-wave flattening over lateral leads also when compared to an old EKG from April of 2022 Discharge Plan Discharge Clinical Impression: Syncope Patient Disposition: Home, Self-Care Instructions: Syncope (DC) Prescriptions: No Action nitrofurantoin monohyd/m-cryst [Macrobid] 100 mg capsule 100 mg PO BID Qty: 14 0RF Rx Instructions: must administer with a meal/food Referrals: Deborah Davis MD [Primary Care Provider] - Jaxon Coello MD [Physician] -
[2022-08-08 21:22] LABS: MANUAL DIFF FLAG NO
[2022-08-08 21:27] LABS: Basophils Absolute Auto 0.1 X10*3/uL (0.0-0.2); Basophils Percent Auto 0.5 % (0-2); Eosinophils Absolute Auto 0.3 X10*3/uL (0.0-0.4); Eosinophils Percent Auto 2.4 % (0-4); Hematocrit 42.2 % (37.0-47.0); Hemoglobin 13.6 g/dl (12.0-16.0); Imm Gran Abs Auto 0.03 X10*3/uL (0.00-0.03); Imm Gran Pct Auto 0.3 % (0.0-0.4); Lymphocytes Absolute Auto 3.7 X10*3/uL (1.2-4.9); Lymphocytes Percent Auto 34.7 % (20-40); Mean Corpuscular HGB Conc 32.2 g/dl (31.0-35.0); Mean Corpuscular Hemoglobin 26.4 pg (27.0-33.0); Mean Corpuscular Volume 81.9 fL (80.0-98.0); Mean Platelet Volume 9.6 fL (9.4-12.3); Monocytes Absolute Auto 1.1 X10*3/uL (0.1-1.2); Neutrophils Absolute Auto 5.5 x10*3/uL (2.0-8.3); Neutrophils Percent Auto 52.1 % (45-73); Platelet Count 435 X10*3/uL (160-400); Red Blood Count 5.15 X10*6/uL (4.20-5.50); Red Cell Distribution Width 12.9 % (11.0-16.0); White Blood Count 10.6 X10*3/uL (4.8-10.8)
--- OUTSIDE RECORDS SUMMARY | 2022-08-08 21:30 | XMS_ITS | Continuity of Care Document ---
Author Name Unknown Organization [facility] ter Address [address] [place] [id number]- Care Team Providers Care Coordinator Volunteer Services Name Role Phone Ryan Deborah SHAH Primary Care Physician Encounter [facility] [place] [facility] [place] [id number] Date(s): 06/09/22 - 07/10/[address] [address]- Attending Physician: Sathya De La Torre MD Admitting Physician: Sathya De La Torre MD Referring Physician: Sathya De La Torre MD Allergies, Adverse Reactions, Alerts Substance Reaction Severity Status Advil throat closing Active Immunizations Given and Recorded Vaccine Date Status Refusal Reason influenza virus vaccine, inactivated 1 05/21/14 Gi rony 1Early/Late Reason: Other : Vaccine information fact sheet given, time to read about the Vaccine Medications Liletta 52 mg intrauteral device 1 each = 52 mg, Once, 0 Refills, Maintenance, 12/05/17 12:06:46 EDT Start Date: 12/05/17 Status: Ordered propranolol 20 mg oral tablet 20 mg, 1, tablet, By Mouth, 3 times a day, PRN, for palpitations, Solo cuando necessitas, # 90 tablet, Refills 11, Tot. Refills 11, Maintenance, Other, 06/01/22 15:11:00 EDT, Route to Pharmacy Electronically, [facility]/pharmacy #[id number], 161, cm, 06/01/22 15:0... Start Date: 06/01/22 Stop Date: 05/27/23 Status: Ordered Tylenol 325 mg oral tablet 325 mg, 1, tablet, By Mouth, Every 4 hours, PRN, # 60 tablet, Refills 0, Tot. Refills 0, Maintenance, for pain, 05/20/16 11:01:07, Route to Pharmacy Electronically, [id number], [facility][id number] Start Date: 05/20/16 Status: Ordered Problem List Condition Confirmation Course Effective Dates Status Health St atus Informant Anxiety Confirmed Active Depression Confirmed Active Obese class I Confirmed Active Palpitations Confirmed Active Social History Social History Type Response Smoking Status Never smoker entered on: 05/20/14 Sex Patient Care team information Care Team Personnel Name: Ryan SHAH , Deborah Luther Position: [facility] Outreach Member Role: PCP Address: Address: [address] [place] [address] [address] [place] [address]- Care Team Related Persons Name: DAVID LANDA Address: home [address] [place] [id number]
--- NOTE | 2022-08-08 21:40 | PC.NURSE ---
this rn assumed care of pt @ 2100. pt unresponsive 8mg nasal narcan given by dr palumbo. at bedside. recharger, this rn, clinical coordinator at bedside. pt placed on compliance monitor. ekg obtained. iv placed. blood work obtained and sent down to lab. per and recharger state pt belongings do not need to be secured by security. pt boyfriend okay'd to be at bedside. pt denies drug use. pt calm and cooperative. denies si/hi
[2022-08-08 21:42] LABS: Alanine Aminotransferase 29 U/L (0-31); Albumin Level 4.7 g/dL (3.5-5.0); Alkaline Phosphatase 66 U/L (39-117); Anion Gap 13 (12-20); Aspartate Amino Transferase 19 U/L (5-31); Bilirubin Direct 0.1 mg/dL (0.0-0.5); Bilirubin Total 0.6 mg/dL (0.0-1.0); Blood Urea Nitrogen 9 mg/dL (9-16); Calcium 9.7 mg/dL (8.4-10.2); Carbon Dioxide 28 mmol/L (22-29); Chloride 106 mmol/L (96-108); Creatinine Clr Calc Pharmacy 113.5; Estimated Glomerular Filt Rate > 60; Glucose Random 99 mg/dL (60-115); Potassium 3.4 mmol/L (3.3-5.1); Sodium 144 mmol/L (135-145)
[2022-08-08 21:45] LABS: Ethanol < 10 mg/dL
[2022-08-08 21:49] LABS: Troponin-I High Sensitivity 5.4 ng/L (<3.5-17.0)
[2022-08-08 21:52] LABS: HCG Quantitative < 2 mIU/mL
[2022-08-08 21:56] LABS: Amphetamine Screen Urine Not Detected (Not Detect); Barbiturates, Urine Not Detected (Not Detect); Benzodiazepines Screen Urine Not Detected (Not Detect); Cannabinoid Screen Urine Not Detected (Not Detect); Cocaine Screen Urine Not Detected (Not Detect); Fentanyl, urine Not Detected (Not Detect); Opiate Screen Urine Not Detected (Not Detect); Phencyclidine Screen Urine Not Detected (Not Detect)
[2022-08-08 22:12] VITALS: BP 138/92; PULSE 78; RESP 12; TEMP 36.8; O2SAT 99
--- NOTE | 2022-08-09 00:35 | ECG_ITS ---
Test Reason : OVER DOSE Blood Pressure : / mmHG Vent. Rate : 090 BPM Atrial Rate : 090 BPM P-R Int : 130 ms QRS Dur : 140 ms QT Int : 404 ms P-R-T Axes : 034 019 -15 degrees QTc Int : 494 ms Normal sinus rhythm Right bundle branch block T wave abnormality, consider inferior ischemia Abnormal ECG When compared with ECG of 20-APR-2022 11:54, QT has lengthened Referred By: Juanita Gresham Electronically Signed By:Jaxon Coello
--- NOTE | 2022-08-09 01:00 | PC.NURSE ---
pt reports to this rn chest discomfort. this rn made dr palumbo aware of pt reports. ekg order placed and obtained. no additional orders
[2022-08-09] MEDS: Naloxone HCl Nasal TAKE HOME 4 MG SPRAY NOSTRILALT (01:39)
[2022-08-09 01:46] VITALS: BP 135/83; PULSE 81; RESP 16; O2SAT 98
--- NOTE | 2022-08-09 01:54 | PC.NURSE ---
iv removed at discharge. straightening press operator helper utilized at discharge. pt calm and cooperative. pt given take home dose of nasal narcan. pt boyfriend at bedside. vss. pt ambulatory at discharge. pt provided with discharge packet. pt verbalized understanding of discharge plan
== END 2022-08-09 01:56 | disposition home or self-care (01) ==
PROVIDERS: Emergency Provider Emergency Medicine Emergency Medical Services; PCP Family Medicine
DX: R55 Syncope and collapse (principal); R41.82 Altered mental status, unspecified; Z79.899 Other long term (current) drug therapy
CPT/HCPCS: 36415; 71045; 80048; 80076; 80307; 84484; 84702; 85025; 93005; 99284

== ENCOUNTER 2022-09-26 14:52 | Outpatient (REF) | payer MEDICAID, SELFPAY ==
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
== END 2022-09-26 14:53 | disposition home or self-care (01) ==
LOC: HO.HHCX 14:52
PROVIDERS: Visit Provider Registered Nurse
DX: S69.91XA Unspecified injury of right wrist, hand and finger(s), initial encounter (principal); X58.XXXA Exposure to other specified factors, initial encounter; Y93.9 Activity, unspecified; Y92.9 Unspecified place or not applicable; Y99.9 Unspecified external cause status
CPT/HCPCS: 73110; 73130

== ENCOUNTER 2022-10-05 19:01 | Outpatient (REF) | payer MEDICAID, SELFPAY ==
[2022-10-06 11:58] LABS: BV Int Neg Control Negative (Negative); BV Int Pos Control Positive (Positive)
== END 2022-10-05 19:02 | disposition home or self-care (01) ==
LOC: HO.HHCLNP 19:01
PROVIDERS: Visit Provider Family Medicine
DX: N89.8 Other specified noninflammatory disorders of vagina (principal)
CPT/HCPCS: 87480; 87510; 87660

== ENCOUNTER 2022-10-07 09:50 | Outpatient (REF) | payer MEDICAID, SELFPAY ==
[2022-10-07 12:57] LABS: CT PCR NOT DETECTED (Not Detect.); NG PCR NOT DETECTED (Not Detect.)
[2022-10-07 15:09] LABS: Cholesterol 188 mg/dL; HDL Cholesterol 38 mg/dL; LDL Cholesterol Calculated 131 mg/dl; Triglycerides 97 mg/dL
[2022-10-08 04:03] LABS: Syphilis Screen Nonreactive (Nonreactive)
[2022-10-08 04:34] LABS: HIV AB/AG Nonreactive (Nonreactive); HIV Num 1 0.06 S/CO (0.00-0.99)
[2022-10-08 04:37] LABS: ~Hepatitis C Antibody Nonreactive (Nonreactive)
== END 2022-10-07 09:51 | disposition home or self-care (01) ==
LOC: HO.HHCL 09:50
PROVIDERS: Visit Provider Family Medicine
DX: Z00.00 Encounter for general adult medical examination without abnormal findings (principal); Z11.3 Encounter for screening for infections with a predominantly sexual mode of transmission
CPT/HCPCS: 0353U; 80061; 86780; 86803; 87389

== ENCOUNTER 2022-10-18 13:49 | Outpatient (RCR) | payer MEDICAID, SELFPAY ==
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
== END 2022-11-28 10:58 | disposition home or self-care (01) ==
LOC: HO.OT 13:49
PROVIDERS: PCP Family Medicine; Visit Provider Registered Nurse
DX: S69.91XD Unspecified injury of right wrist, hand and finger(s), subsequent encounter (principal)
CPT/HCPCS: 97110; 97165

== ENCOUNTER 2024-01-01 18:54 | Outpatient (REF) | payer MEDICAID, SELFPAY ==
[2024-01-02 05:19] LABS: CT PCR NOT DETECTED (Not Detect.); NG PCR NOT DETECTED (Not Detect.)
[2024-01-02 10:53] LABS: Bacterial Vaginosis PCR POSITIVE (Negative); Candida Group PCR NOT DETECTED (Not Detect); Candida glab krusei PCR NOT DETECTED (Not Detect); Trichomonas vaginalis PCR DETECTED (Not Detect)
== END 2024-01-01 18:55 | disposition home or self-care (01) ==
LOC: HO.HHCLNP 18:54
PROVIDERS: Visit Provider Internal Medicine
DX: N89.8 Other specified noninflammatory disorders of vagina (principal)
CPT/HCPCS: 0352U; 87491; 87591

== ENCOUNTER 2024-02-22 09:31 | Outpatient (REF) | payer MEDICAID, SELFPAY ==
[2024-02-22 12:24] LABS: Anion Gap 13 (12-20); Blood Urea Nitrogen 11 mg/dL (9-16); Calcium 9.6 mg/dL (8.4-10.2); Carbon Dioxide 25 mmol/L (22-29); Chloride 105 mmol/L (96-108); Cholesterol 221 mg/dL (<200); Estimated Glomerular Filt Rate > 60; Glucose Random 121 mg/dL (60-115); HDL Cholesterol 44 mg/dL (>40); LDL Cholesterol Calculated 156 mg/dL (<100); Potassium 3.8 mmol/L (3.3-5.1); Sodium 139 mmol/L (135-145); Triglycerides 108 mg/dL (<150)
[2024-02-22 12:35] LABS: HIV AB/AG Nonreactive (Nonreactive); HIV Num 1 0.05 S/CO (0.00-0.99)
[2024-02-22 12:36] LABS: Syphilis Screen Nonreactive (Nonreactive)
[2024-02-22 12:38] LABS: TSH reflex Free T4 1.44 uIU/mL (0.32-4.0)
[2024-02-22 12:59] LABS: Reflex LDLD? No
[2024-02-22 13:26] LABS: CT PCR NOT DETECTED (Not Detect.); NG PCR NOT DETECTED (Not Detect.)
[2024-02-25 16:24] LABS: TS Negative Control Passed; TS Panel A 0; TS Panel B 0; TS Positive Control Passed; TSpotTB Negative (Negative)
== END 2024-02-22 09:32 | disposition home or self-care (01) ==
LOC: HO.HHCL 09:31
PROVIDERS: Visit Provider Internal Medicine
DX: Z00.00 Encounter for general adult medical examination without abnormal findings (principal); I10 Essential (primary) hypertension; Z20.2 Contact with and (suspected) exposure to infections with a predominantly sexual mode of transmission; N89.8 Other specified noninflammatory disorders of vagina
CPT/HCPCS: 80048; 80061; 84443; 86481; 86780; 87389; 87491; 87591